=== PATIENT | female | born 1960 | race Two or more races ===

== ENCOUNTER 2023-01-01 05:56 | Day surgery (SDC) | payer OTHER ==
[~2023-01-01] VITALS: Ht 152.4 cm; Wt 74.4 kg
[~2023-01-01 05:56] MED LIST: ALTACE2.5 MG PO; FENOFIBRATE150 MG PO; PREVACID15 M1 PO; VITAMIN D PO
[2023-01-01] MEDS ORDERED: TRAM1TAB98 PO (14:05)
[2023-01-01] MEDS ORDERED: IBU600 MG PO (14:05)
== END 2023-01-01 16:35 | disposition home or self-care (01) ==
LOC: CIR.AMB 05:56
PROVIDERS: ATTEND Obstetrics & Gynecology
DX: D28.1 Benign neoplasm of vagina (principal); Z20.822 Contact with and (suspected) exposure to COVID-19; Z88.0 Allergy status to penicillin; I10 Essential (primary) hypertension